=== PATIENT | male | born 1955 | race Caucasian/White ===

== ENCOUNTER 2018-08-10 09:22 | Outpatient (CLI) | payer BC ==
[~2018-08-10 09:22] MED LIST: Gadobenate Dimeglumine 529 MG/1 ML (20ML VIAL) ONE
--- NOTE | 2018-08-10 12:27 | RAD ---
3 VIEWS LUMBAR SPINE: Date: 08/10/18 HISTORY: Spondylosis with radiculopathy. Chronic low back pain with numbness radiating to left leg, x6 months. COMPARISON: 09/24/16. FINDINGS: There are five lumbar-type vertebral bodies. When compared to the previous examination, the degree of anterolisthesis of L4 upon L5 has significantly progressed. In the neutral position, there is curren tly 1.2 cm of anterolisthesis. Upon flexion, there is 1.6 cm. Upon extension, there is 1.1 cm. Postsu rgical change at the lumbosacral junction is again demonstrated. There is 4.0 mm of retrolisthesis of L2 upon L3 in the neutral position. Upon flexion, there is 2.3 m m of retrolisthesis. Upon extension, there is 4.6 mm of retrolisthesis of L2 upon L3. IMPRESSION: Spondylolisthesis as described above. The degree of spondylolisthesis at L4-L5 has progressed. There is essentially stable spondylolisthesis at L2-L3. POS: [facility]
--- NOTE | 2018-08-10 13:05 | MRI ---
MRI LUMBAR SPINE WITH AND WITHOUT CONTRAST: Date: 08-10-18 History: Chronic low back pain with numbness radiating into the left lower extremity for six months. Comparison: 09-24-16 Technique: Multiplanar, multisequence MR imaging of the lumbar spine is provided with and without con trast. FINDINGS: Incompletely assessed post-operative hardware is noted at the lumbosacral junction with posterior and anterior fusion components. There is an intervertebral disc device at L5-S1. The post-operative hard chakraborty is not optimally accessed on this examination. On this examination the STIR imaging demonstrates prominent edematous change at the L4-5 level involv ing the inferior endplate of L4 and superior endplate of L5. This edematous change is new when compar ed to the 09-24-16 examination. In addition, there is new anterolisthesis of L4 on L5 measuring 1.1 cm . No additional areas of anterolisthesis or retrolisthesis is noted. On the basis of five lumbar type vertebral bodies, the conus medullaris terminates at the T12-L1 leve l. T12-L1: Mild disc space narrowing. Mild bilateral facet hypertrophy. Mild anterior osteophyte formati on. No significant central canal or neural foraminal stenosis. L1-2: Disc space narrowing and mild bilateral facet hypertrophy. Mild anterior osteophyte formation. Disc space narrowing and minimal disc bulge. No significant central canal or neural foraminal stenosi s. L2-3: Mild bilateral facet hypertrophy with no significant central canal or neural foraminal stenosis . L3-4: Bilateral facet hypertrophy. Disc desiccation and mild disc space narrowing. Mild bilateral kyleigh ral foraminal stenosis, left greater than right. No significant central canal stenosis. L4-5: Disc space narrowing, disc desiccation and mild disc bulge. Mild central canal stenosis. Promin ent bilateral facet hypertrophy. Severe bilateral neural foraminal stenosis. L5-S1: No significant central canal or neural foraminal stenosis. There may be L4 pars defects but assessment is quite limited secondary to the post-operative change i n this region as well as the severe facet hypertrophy bilaterally. The post contrast imaging demonstrates no abnormal enhancement involving the contents of the thecal s ac. There is enhancement posterior to the thecal sac at the L4 and L5 levels suggesting scar on the basis of prior bilateral laminectomy. There is also enhancement involving the inferior endplate of L4 and superior endplate of L5 likely on the basis of inflammatory change associated with new anterolisthesis in this region. Imaged retroperitoneal structures demonstrate no acute findings. Of note, the neural foraminal stenosis bilaterally at L4-5 has worsened significantly when compared t o the 09-24-16 exam. IMPRESSION: 1. New severe edematous endplate change noted at L4-5 with new anterolisthesis of L4 on L5 and associ ated bilateral severe neural foraminal stenosis. Please consider CT examination to exclude L4 pars de fects. Additional degenerative endplate operative changes as detailed above. POS: [facility]
== END 2018-08-10 09:23 | disposition home or self-care (01) ==
LOC: SCSMRI 09:22
PROVIDERS: ATTEND Neurological Surgery
DX: M47.26 Other spondylosis with radiculopathy, lumbar region (principal); M54.30 Sciatica, unspecified side; M54.9 Dorsalgia, unspecified; M43.16 Spondylolisthesis, lumbar region; M48.061 Spinal stenosis, lumbar region without neurogenic claudication; Z98.1 Arthrodesis status
CPT/HCPCS: 72100; 72158; 82565; A9579

== ENCOUNTER 2018-09-19 15:09 | Outpatient (CLI) | payer BC ==
--- NOTE | 2018-09-19 16:13 | CT ---
CT LUMBAR SPINE WITHOUT CONTRAST: HISTORY: [place] study for surgical planning. TECHNIQUE: A noncontrast CT lumbar spine is performed in the axial plane. Reformatted images are submitted for interpretation. FINDINGS: Limited evaluation of the solid organs and alimentary canal due to lack of IV contrast and due to mot ion degradation. Grossly, no solid organ abnormality or abnormality within the alimentary canal. Th e visualized abdominal mesentery is unremarkable. There is diverticulosis in the left hemicolon. No evidence of diverticulitis. Atherosclerosis of a nonaneurysmal aorta. No retroperitoneal mass, lym phadenopathy, or hematoma. Symmetric attenuation of the psoas muscles. Five lumbar type vertebral bodies. There is no evidence of a lumbar spine fracture. There is vacuum disk phenomenon at L4-L5. There is 0.9 cm of anterolisthesis of L4 upon L5. There are bilateral pa rs defects at L4. There are fusion changes at the L5-S1 disk space with anterior and posterior hardware. There is a pr osthesis at the L5-S1 disk space. Coronal images demonstrate degenerative change in the distal thoracic spine and upper lumbar spine. There is endplate sclerosis at L4-L5. Limited evaluation of the contents of the central spinal canal and neural foramina due to technique. T11-T12/T12-L1: No high-grade central canal stenosis or high-grade foraminal narrowing. L1-L2: Generalized disk bulge. Mild central canal stenosis. Right neural foramen is patent. Moder ate left foraminal narrowing. L2-L3: Generalized disk bulge without significant central canal stenosis. The right neural foramen is patent. Mild left foraminal narrowing. L3-L4: Posterior laminectomy defect. No high-grade central canal stenosis. Mild bilateral foramina l narrowing. L4-L5: Vacuum disk phenomenon. Laminectomy defect. There appears to be a generalized disk bulge wi thout significant central canal stenosis. Severe right and moderate left foraminal narrowing. L5-S1: No high-grade central canal stenosis or high-grade foraminal narrowing. IMPRESSION: 1. Post surgical changes of the lumbar spine, as above. 2. Grade 1 anterolisthesis of L4 upon L5, associated with bilateral pars defects. 3. Lumbar fusion hardware, as described above. POS: [facility]
== END 2018-09-19 15:10 | disposition home or self-care (01) ==
LOC: SCSCT 15:09
PROVIDERS: ATTEND Neurological Surgery
DX: M54.30 Sciatica, unspecified side (principal); M47.26 Other spondylosis with radiculopathy, lumbar region; M47.816 Spondylosis without myelopathy or radiculopathy, lumbar region; M43.16 Spondylolisthesis, lumbar region; Z98.1 Arthrodesis status
CPT/HCPCS: 72131

== ENCOUNTER 2018-10-31 05:46 | Inpatient (IN) | payer BC ==
--- NOTE | 2018-10-31 00:35 | HP ---
HISTORY OF PRESENT ILLNESS: Mr. Christensen returned to the office for return of left lower extremity pain. The patient reports that following his surgery, he had about a year of good relief of his symptoms. However, in the last year, he has progressively gotten more painful. He states that the pain is debilitating and he is unable to stand for more than 5 minutes. He has pain that goes down the back of his left thigh in the lateral lower extremity to his foot, sometimes pain into his big toe. The patient has numbness and tingling in his foot. The patient states that he has had ablations done by Dr. Christensen, which had given him relief from most of his back pain, but nothing for the leg symptoms. It has been more than a year since his last LORIN. The patient denies any recent physical therapy. He has been on ibuprofen without much benefit. He has taken 1 hydrocodone, which helped him sleep. REVIEW OF SYSTEMS: A 10-point review of systems has been completed and is negative other than stated in the above HPI. PAST MEDICAL HISTORY: Chronic sinusitis, nasal allergies, hypothyroidism, and depression. PAST SURGICAL HISTORY: Septoplasty several years ago, ESS, septo and TR in 2011, L5-S1 ALIF in 2013, laminectomy in 2016. FAMILY HISTORY: Father is . Mother is . Diagnosed with hypertension and cancer. Family history of lung cancer. SOCIAL HISTORY: The patient is a nonsmoker. Denies other tobacco exposure. No alcohol or drugs. 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 MEDICATIONS: Synthroid, ibuprofen, Lexapro. ALLERGIES: NO KNOWN DRUG ALLERGIES. PHYSICAL EXAMINATION: CONSTITUTIONAL: Well appearing, well nourished, alert. NEUROLOGIC: Mental status oriented to time, place, and person. Normal attention span and concentration. Speech spontaneous and fluent. Comprehension intact. Content appropriate. Normal fund of knowledge. Cranial nerves pupils equal, round, and reactive to light. Extraocular movements are intact. Hearing is intact. Neurologic: Motor; muscle strength normal in upper and lower extremities. Muscle tone, bulk normal. Lower extremities 5/5 bilateral strength in IP, KE, KF, DF, PF, EHL, L5 radiculopathy on the left. Positive single leg raise on left. Rotation of bilateral hips normal. Nontender to palpation of the low back. Deep tendon reflexes 2+ patellar, 2+ ankles bilaterally. Sensory to light touch, intact. Gait and station sitting to stand slow, normal gait. Respirations: Normal work of breathing on room air. IMAGING: MRI, a slip has developed at the L4-L5 with collapse of the L4 disk and vertical pinching of the L4 nerve roots as they exit the foramina. The canal is open. X-rays some dynamic instability at L4-L5 along with the slip. ASSESSMENT AND PLAN: Lumbar spondylolisthesis with foraminal stenosis. Dr. Burleson has offered surgery to the ALIF at L4-5. I have obtained informed consent and have discussed indications, risks, benefits, alternatives, expected results from surgery. Risks discussed included, but were not limited to, bleeding, infection, CSF leak, nerve damage, weakness, incontinence, cauda equina injury, arachnoiditis, paralysis, ventilator dependence, wheelchair dependence, loss of vision, hardware misplacement, cardiopulmonary complications of anesthesia or . Long-term complications discussed included, but were not limited to degradation of surrounding disks and the need for further surgery. The patient states he understands the risks and is willing to proceed with the surgery. Job ID: [id number]
[2018-10-31] MEDS ORDERED: Bupivacaine HCl 0.5%/Epinephrine 1:200,000/PF 30 ml Vial ONE (06:18)
[2018-10-31] MEDS ORDERED: Sodium Chloride 0.9% 30 ML ONE (06:18)
[2018-10-31] MEDS ORDERED: Thrombin 5000 UNITS/5 ML VIAL ONE (06:18)
[2018-10-31] MEDS ORDERED: Fentanyl 100 MCG/2 ML VIAL ONE ×4 (06:23→16:00)
[2018-10-31] MEDS ORDERED: Famotidine/PF 20 mg/2ml Vial ONE (06:23)
[2018-10-31 06:29] LABS: #Eosinphils 0.4 thou/uL (0.0-0.7); #Lymphocytes 1.7 thou/uL (1.20-3.40); #Monocytes 0.5 thou/uL (0.11-0.59); #Neutrophils 3.4 thou/uL (1.40-6.50); %Basophils 0.4 % (0.0-1.0); %Eosinophils 6.9 % (0.0-10.0); %Lymphocytes 28.4 % (21.0-51.0); %Monocytes 7.6 % (0.0-10.0); %Neutrophils 56.6 % (42.0-75.0); Hemoglobin 14.6 g/dL (14.0-18.0); Mean Corpuscular HGB CONC 34.2 g/dL (32.0-36.0); Mean Corpuscular Hemoglobin 30.8 pg (27.0-31.0); Mean Corpuscular Volume 90.3 fL (78.0-98.0); Mean Platelet Volume 7.6 fL (7.4-10.4); Platelet Count 171 thou/uL (130-400); RBC Distribution Width 11.6 % (11.5-14.5); Red Blood Cell (RBC) Count 4.72 mill/uL (4.70-6.10)
[2018-10-31 06:36] LABS: PTT 24.6 SEC (22.9-36.1); Prothrombin Time 13.3 SEC (12.0-14.7)
[2018-10-31] MEDS ORDERED: Midazolam HCl 2 mg/2 ml Vial ONE (07:09)
[2018-10-31] MEDS ORDERED: ePHEDrine/0.9% NaCl/PF SYRINGE 50 mg/10 ml ONE ×2 (07:52→09:12)
[2018-10-31] MEDS ORDERED: Metoclopramide HCl 10 MG/2 ML VIAL ONE (11:13)
[2018-10-31] MEDS ORDERED: Rocuronium Bromide 10 MG/ML (10ML VIAL) ONE (11:13)
[2018-10-31] MEDS ORDERED: Dexamethasone 20 MG/5 ML VIAL ONE (11:13)
[2018-10-31] MEDS ORDERED: ePHEDrine 50 MG/ML VIAL ONE (11:13)
[2018-10-31] MEDS ORDERED: Glycopyrrolate 0.2 MG/ML 5 ML SYRINGE ONE (11:13)
[2018-10-31] MEDS ORDERED: Ketorolac Tromethamine 30 MG/ML VIAL ONE (11:13)
[2018-10-31] MEDS ORDERED: Ondansetron PF 4 MG/2 ML Vial ONE (11:13)
[2018-10-31] MEDS ORDERED: Lidocaine 1% PF 5 ML VIAL ONE (11:13)
[2018-10-31] MEDS ORDERED: Vecuronium 10 MG VIAL ONE (11:13)
[2018-10-31] MEDS ORDERED: PROPOFOL 200 MG/20 ML VIAL ONE (11:13)
[2018-10-31] MEDS ORDERED: Ondansetron HCl/PF 4 MG/2 ML Vial IVP PRN (12:21)
[2018-10-31] MEDS ORDERED: Promethazine HCl 25 MG/ML VIAL IM PRN ×2 (12:21→13:20)
[2018-10-31] MEDS ORDERED: HYDROmorphone 2 MG/ML VIAL SLOW IVP PRN (12:21)
[2018-10-31] MEDS ORDERED: Meperidine HCl/PF 25 MG/ML VIAL SLOW IVP PRN (12:21)
[2018-10-31] MEDS ORDERED: Promethazine HCl 25 MG/ML VIAL SLOW IVP PRN (12:21)
[2018-10-31] MEDS ORDERED: Milk Of Magnesia 30 ML UDCUP PO PRN (13:20)
[2018-10-31] MEDS ORDERED: tiZANidine HCl 4 MG TAB PO PRN (13:20)
[2018-10-31] MEDS ORDERED: traMADol HCl 50 MG TAB PO PRN (13:20)
[2018-10-31] MEDS ORDERED: Acetaminophen 650 MG Suppository PR PRN (13:20)
[2018-10-31] MEDS ORDERED: diphenhydrAMINE 25 MG CAP PO PRN (13:20)
[2018-10-31] MEDS ORDERED: Morphine 2 MG/ML SYRINGE SLOW IVP PRN (13:20)
[2018-10-31] MEDS ORDERED: Morphine 4 MG/ML VIAL SLOW IVP PRN (13:20)
[2018-10-31] MEDS ORDERED: diphenhydrAMINE 50 MG/ML VIAL IVP PRN (13:20)
[2018-10-31] MEDS ORDERED: Acetaminophen 325 MG TAB PO PRN (13:20)
[2018-10-31] MEDS ORDERED: Mag-Al 1200 mg/1200 mg/30 ML UDCUP PO PRN (13:20)
[2018-10-31] MEDS ORDERED: Promethazine 25 MG TAB PO PRN (13:20)
[2018-10-31] MEDS ORDERED: Acetaminophen/Codeine 30-300mg Tablet PO PRN ×2 (13:20)
[2018-10-31] MEDS ORDERED: Ondansetron PF 4 MG/2 ML Vial IVP PRN (13:20)
[2018-10-31] MEDS ORDERED: Zolpidem Tartrate 5 MG TAB PO PRN (13:26)
[2018-10-31] MEDS: CEFAZOLIN 2 GM in Premix Bag 1 BAG IVPB SCH ×2 (15:48→21:31)
--- NOTE | 2018-10-31 18:22 | OP ---
DATE OF PROCEDURE: 10/31/2018 [employer] [facility] DEVELOPER: Peggy Alvares PA-C PREOPERATIVE INDICATION: Treat pain and prevent neurological deterioration. PREOPERATIVE DIAGNOSES: Prior lumbar decompression, prior lumbar fusion, new L4-L5 spondylolisthesis with bilateral L4 foraminal stenosis and severe left greater than right L4 radiculopathies. POSTOPERATIVE DIAGNOSES: Prior lumbar decompression, prior lumbar fusion, new L4-L5 spondylolisthesis with bilateral L4 foraminal stenosis and severe left greater than right L4 radiculopathies. OPERATIVE PROCEDURES: Reopening lumbar incision, repeat hemilaminectomy and foraminotomy L4-L5, transforaminal lumbar interbody arthrodesis L4-L5, placement of intervertebral biomechanical device L4-L5, pedicle screw and gila instrumentation L4-L5, posterolateral arthrodesis L4-L5, local morselized autograft, morselized allograft, and operating microscope. PREOPERATIVE MEDICATION: Ancef 2 g IV. DRAIN: #0. DRAIN TYPE: None. DESCRIPTION OF PROCEDURE: The patient was brought to the operating room. General endotracheal anesthesia was induced. The patient was positioned on the Alexy frame with the appropriate padding for the chest and hips. A lateral fluoro radiograph was used to confirm the previous incision would give us access from L3 through L5 segments of the lumbosacral spine. The back was sterilely prepped and draped. We opened with a 10 blade knife and controlled bleeding with bipolar and monopolar cautery. We used monopolar cautery to dissect through subcutaneous tissues to the thoracodorsal fascia. We incised the fascia in the midline over the remnant of L3 spinous process and the S1 spinous process. We dissected the paraspinal muscles and scar tissue laterally exposing the lamina of L3. The remnants of the lamina of L4 and L5, the superior portion of the sacrum. A lateral fluoro radiograph confirmed the levels upon which we were operating. We then carried our dissection over the facet joints to L3-L4 and L4-L5 to identify the transverse processes of L4 and L5 bilaterally. We irrigated with bacitracin irrigation. We brought the operative microscope in the field. Under microscopic magnification and using microsurgical techniques, we carefully scar tissue from the lateral aspect of the spinal canal with the curettes. We identified the common thecal sac and the L4 nerve roots medial to the L4 pedicles. We followed these nerve roots out the foramina. These were extremely compressed by the collapse of the L4-L5 interspace. We performed wide foraminotomies over the nerve roots. On the left side, we completed the facetectomy and unroof the foramina entirely. We followed the L4 nerve root out to the paraspinal space and is no longer impinged. We then gently retracted the thecal sac medially at the L4-L5 interspace. We incised the disk space and removed disk contents using curettes and rongeurs. We prepared the endplates for grafting with a rectangular shaped bone rasp and curettes. We measured the height of the interspace to 9 mm. A 9 mm PEEK intervertebral graft was brought into the field. This was loaded with demineralized bone matrix and morselized autograft. The autograft was obtained from a repeat laminectomy were quickly with decompress of the lateral recesses. This morcellized bone was added to demineralized bone matrix to form a fusion substrate and was packed into the interbody device. The PEEK device was advanced under radiographic guidance to the appropriate depth. We then turned our to attention to pedicle screw instrumentation. Using bony anatomic landmarks, palpation of the medial portion of the pedicles, and a lateral fluoro radiograph as our guide, we chose the entry points for pedicle screws. We used a bone awl to advance the trajectories into the vertebral bodies. We tapped he trajectories with a threaded tap and probed them. We found them completely encased in bone. We placed 6.5 mm diameter screws into the pedicles of L4 and L5 bilaterally. A 360-degree image set was generated with our eccentric C-arm. This confirmed adequate positioning of a pedicle screw instrumentation. We then irrigated copiously with bacitracin irrigation. We decorticated the transverse process of L4 and L5 bilaterally. We placed rods and screw heads and tightened caps over the rods. Before final tightening, we applied a compressive force across the interspace to keep our interbody graft in place. Using a torque/counter-torque mechanism, we ensured adequate tightness. Over the decorticated bone in the posterior lateral recess, we laid demineralized bone matrix, morselized autograft as our posterior lateral fusion substrate. We irrigated the center of the wound once again. We treated with vancomycin powder. We closed the wound in anatomical layers. We applied a sterile dressing. This was a clean case, no contamination. Job ID: [id number]
[2018-10-31 19:19] VITALS: BMI 30.9
[2018-10-31] MEDS: Sodium Chloride 0.9% 1,000 ML IV SCH (21:30)
[2018-11-01] MEDS: traMADol HCl 50 MG TAB PO PRN ×2 (00:36→09:06)
[2018-11-01] MEDS: Sodium Chloride 0.9% 1,000 ML IV SCH (02:29)
[2018-11-01] MEDS ORDERED: Levothyroxine Sodium 125 MCG TAB PO SCH (06:00)
[2018-11-01] MEDS ORDERED: Tamsulosin HCl 0.4 MG CAP PO PRN (06:00)
--- NOTE | 2018-11-01 07:33 | PRG ---
DATE OF SERVICE: 11/01/2018 I saw Mr. Christensen one day out from his redo foraminotomy and TLIF. He is doing much better than I thought he would. His back is sore, but it is not terribly so. He has some drainage from his incision, which is concerning the nurses. Vitals have been stable. His neurological examination is quite good. Given the multiple operations through the same incision, it will take a while to seal itself shut, I am not alarmed by the drainage. I anticipate it will drain for the next week or so, less each day and finally stop. We can send him home on oral antibiotics if necessary. Mr. Chritsensen is anxious to get out of the hospital. He thinks he can take care of himself at home. We will watch him until the afternoon. We will fit him with a brace and he can wear the brace when he is up and around and he will keep a dressing on the wound while straining to keep the drainage off his clothes, but otherwise I think he is doing remarkably well. Job ID: [id number]
[2018-11-01] MEDS ORDERED: Escitalopram Oxalate 10 mg Tablet PO SCH (09:00)
[2018-11-01] MEDS ORDERED: Bupropion 150 MG XL TAB PO SCH (09:00)
[2018-11-01 12:44] VITALS: BP 158/82; TEMP 98
== END 2018-11-01 14:42 | disposition home or self-care (01) | DRG 455 ==
LOC: SURG A 05:46 → SJJU 19:25
PROVIDERS: ADMIT Neurological Surgery; ATTEND Neurological Surgery
PROC: 0SG00AJ Fusion of Lumbar Vertebral Joint with Interbody Fusion Device, Posterior Approach, Anterior Column, Open Approach (ICD-10-PCS; principal; 2018-10-31)
PROC: 0SB20ZZ Excision of Lumbar Vertebral Disc, Open Approach (ICD-10-PCS; 2018-10-31)
PROC: 0SG0071 Fusion of Lumbar Vertebral Joint with Autologous Tissue Substitute, Posterior Approach, Posterior Column, Open Approach (ICD-10-PCS; 2018-10-31)
DX: M43.16 Spondylolisthesis, lumbar region (principal); M48.061 Spinal stenosis, lumbar region without neurogenic claudication; M54.16 Radiculopathy, lumbar region; E03.9 Hypothyroidism, unspecified; F32.9 Major depressive disorder, single episode, unspecified; Z98.890 Other specified postprocedural states
CPT/HCPCS: 36415; 76000; 85025; 85610; 85730; C1713; C1768; J0131; J0670; J1100; J1885; J2001; J2250; J2405; J2704; J2765; J3010; J3370; J3490; S0028

== ENCOUNTER 2019-01-02 13:34 | Outpatient (CLI) | payer BC ==
--- NOTE | 2019-01-02 14:05 | RAD ---
TWO VIEWS LUMBAR SPINE: DATE: 01/02/2019. COMPARISON: 08/10/2018. HISTORY: Evaluate the lumbar spine following surgery. FINDINGS: Anterolisthesis of L4 on L5 noted, measuring approximately 1.1 cm. Anterior and posterior fusion hard chakraborty is present at the lumbosacral junction. New bilateral L4 and L5 pedicle screws are present with vertically oriented interlocking rods. Bilateral laminectomy changes are noted at L4 and L5. The re is retrolisthesis at L2-3 measuring approximately 5 mm. There is multilevel lower thoracic spine and upper lumbar spine disc space narrowing with degenerative endplate change and anterior osteophyte formation. New intervertebral disc device present at L4-5. IMPRESSION: Multilevel postoperative and degenerative change of the lumbar spine as detailed above. Transcribed Date/Time: 01/02/2019 2:07 PM
== END 2019-01-02 13:35 | disposition home or self-care (01) ==
LOC: TBSIIMAG 13:34
PROVIDERS: ATTEND Neurological Surgery
DX: M47.26 Other spondylosis with radiculopathy, lumbar region (principal); M43.16 Spondylolisthesis, lumbar region; Z98.890 Other specified postprocedural states
CPT/HCPCS: 72100

== ENCOUNTER 2019-01-23 15:48 | Outpatient (CLI) | payer BC | END 2019-01-23 15:49 | disposition home or self-care (01) | LOC: CTENTCT 15:48 | PROVIDERS: ATTEND Otolaryngology Plastic Surgery within the Head & Neck | DX: J01.91 Acute recurrent sinusitis, unspecified (principal) | CPT/HCPCS: 70486 ==